=== PATIENT | male | born 1955 | race Hispanic/Latino ===

== ENCOUNTER 2018-08-14 13:06 | Emergency (ER) | payer MEDICAID, OTHER ==
[2018-08-14 13:10] VITALS: BMI 22.8
--- NOTE | 2018-08-14 14:30 | ED PDOC ---
HPI: General Adult Time Seen by Provider: 08/14/18 13:55 Chief Complaint (Nursing): Back Pain Chief Complaint (Provider): BACK PAIN History Per: Patient (63 Y/O MALE 2ND VISIT TO HOSPITAL FOR BACK PAIN. STATES HE FELL 2 WEEKS AGO AND WAS SEEN AT [facility] BUT NO EVALUATION OF HIS BACK AT THAT TIME DUE TO DISTRACTING ANKLE INJURY. DENIES ANY FEVERS/CHILLS. DENIES ANY DRUG ABUSE HISTORY. ) Past Medical History Reviewed: Historical Data, Nursing Documentation, Vital Signs Vital Signs: Last Vital Signs Temp 99.1 F 08/14/18 13:10 Pulse 84 08/14/18 13:10 Resp 17 08/14/18 13:10 BP 145/74 08/14/18 13:10 Pulse Ox 98 08/14/18 13:10 Primary Care Provider: Samm Saez - Family History Family History: States: Unknown Family Hx - Home Medications Home Medications: Ambulatory Orders Medication Instructions Recorded levoFLOXacin [Levaquin] 750 mg PO DAILY #7 tab 08/13/17 Docusate Sodium [Colace] 100 mg PO BID #20 capsule 08/14/18 Meloxicam [Mobic] 7.5 mg PO BID PRN #14 tab 08/14/18 - Allergies Allergies/Adverse Reactions: Allergies Allergy/AdvReac Type Severity Reaction Status Date / Time No Known Allergies Allergy Verified 08/14/18 13:15 Review of Systems ROS Statement: Except As Marked, All Systems Reviewed And Found Negative Physical Exam - Reviewed Nursing Documentation Reviewed: Yes Vital Signs Reviewed: Yes - Physical Exam Appears: Positive for: Well, Non-toxic, No Acute Distress Head Exam: Positive for: ATRAUMATIC, NORMAL INSPECTION, NORMOCEPHALIC Skin: Positive for: Normal Color, Warm, DRY Eye Exam: Positive for: EOMI, Normal appearance, PERRL ENT: Positive for: Normal ENT Inspection Neck: Positive for: Normal, Painless ROM Cardiovascular/Chest: Positive for: Regular Rate, Rhythm Respiratory: Positive for: CNT, Normal Breath Sounds Gastrointestinal/Abdominal: Positive for: Normal Exam, Soft Back: Positive for: Normal Inspection Extremity: Positive for: Normal ROM Neurological/Psych: Positive for: Awake, Alert, Normal Tone - ECG O2 Sat by Pulse Oximetry: 98 - Progress ED Course And Treament: OLD MEDICAL RECORDS REVIEWED. PATIENT WAS NOTED TO BE POSITIVE OPIATE/COCAINE ON DRUG SCREEN CT L SPINE/PELVIS: NO FX NO ABSCESS Disposition - Clinical Impression Clinical Impression: Back pain, Coccyx contusion - Patient ED Disposition Is Patient to be Admitted: No - Disposition Disposition: Routine/Home Disposition Time: 15:11 Condition: FAIR Prescriptions: Docusate Sodium [Colace] 100 mg PO BID #20 capsule Meloxicam [Mobic] 7.5 mg PO BID PRN #14 tab PRN Reason: Pain, Moderate (4-7) Instructions: Low Back Pain in Adults, Coccyx Injury (DC)
--- NOTE | 2018-08-14 15:02 | CT ---
Date of service: 08/14/2018 PROCEDURE: CT Lumbar Spine without contrast HISTORY: back pain/ fall/ h/o drug abuse COMPARISON: None available. TECHNIQUE: Axial computed tomography images were obtained of the lumbar spine without the use of intravenous contrast. Coronal and sagittal reformatted images were created and reviewed. Radiation dose: Total exam DLP = 926.57 mGy-cm. This CT exam was performed using one or more of the following dose reduction techniques: Automated exposure control, adjustment of the mA and/or kV according to patient size, and/or use of iterative reconstruction technique. FINDINGS: VERTEBRAE: No destructive bony lesion appreciable. Multilevel spondylosis seen diffusely but seen worst at L3-4 anteriorly. No fracture. Normal alignment. DISCS/SPINAL CANAL/NEURAL FORAMINA: L1-2: Minimal posterior disc bulge is appreciate without resulting in significant central canal stenosis. Borderline degenerative bilateral neural foraminal stenosis however. L2-3: Posterior disc bulge identified with facet joint degenerative arthropathy resulting in mild central canal stenosis concentrated at the lateral recesses. Mild bilateral neural foraminal stenosis is also identified on a degenerative basis. L3-4: A large disc osteophyte complex combines with facet joint degenerative changes resulting in a moderate central canal stenosis with moderate bilateral neural foraminal stenosis also present. L4-5: There is a circumferential disc bulge identified here with sagittal projection the best at demonstrating a likely extruded disc herniation causing a severe central canal stenosis. Moderate bilateral neural foraminal stenosis is identified on a degenerative basis. L5-S1: A posterior disc bulge appears moderate in size with small central disc protrusion questioned combined with facet joint degenerative changes to cause a [id number] central canal stenosis. Borderline bilateral neural foraminal stenosis. PARASPINAL SOFT TISSUES: Calcific non aneurysmal atherosclerotic abdominal aorta is appreciated as well as the visualized bilateral iliac arterial system. OTHER FINDINGS: None. IMPRESSION: 1. A L4-5 large central disc herniation overlies circumferential disc bulge posterior component causing a severe central canal stenosis. Moderate bilateral neural foraminal stenosis is appreciated on degenerative basis. Follow-up MRI is advised when feasible for confirmation. 2. Posterior disc bulge combined with small central disc protrusion causing mild to moderate central stenosis at L5-S1. 3. Moderate degenerative spinal stenosis L3-4, mild at L2-3.
--- NOTE | 2018-08-14 15:08 | CT ---
Date of service: 08/14/2018 PROCEDURE: CT Pelvis without contrast HISTORY: fall/pain sacrum COMPARISON: None available. TECHNIQUE: Contiguous axial images of the pelvis . No intravenous or oral contrast given. Coronal and sagittal reformats generated. Radiation dose: Total exam DLP = 0.0 mGy-cm. This CT exam was performed using one or more of the following dose reduction techniques: Automated exposure control, adjustment of the mA and/or kV according to patient size, and/or use of iterative reconstruction technique. FINDINGS: BLADDER: Urinary bladder is not distended limiting evaluation of the wall. Cystitis not excluded but no pericystic reactive changes are identified. No radiodense urolithiasis is identified in the lumen. REPRODUCTIVE ORGANS: Enlarged prostate gland noted. VISUALIZED BOWEL: Limited sigmoid diverticular changes are present without definite diverticulitis. PERITONEUM: Unremarkable, as visualized. No free fluid. No free air. LYMPH NODES: Unremarkable. No enlarged lymph nodes. BONES: No fracture or suspicious destructive bony lesion throughout the pelvis with pubic symphysis and pubic bones unremarkable. Degenerative subchondral cyst formation is appreciate the weight-bearing portions of the bilateral acetabuli accompanying cortical sclerosis on both sides of the hip joints. Limited osteophyte development is also appreciated at the hip joints compatible with moderate to severe bilateral degenerative joint disease. Lesser similar change appears at the bilateral sacroiliac joints. Sacral arcades appear unremarkable diffusely. No subluxation or dislocation bilateral hip joints. No distraction of the bilateral sacroiliac joints. VASCULATURE: No aortic atherosclerotic calcification or mural plaque present. OTHER FINDINGS: None. IMPRESSION: No acute or subacute fracture. No destructive bony lesion appreciable. Relatively advanced osteoarthritis bilateral hip joints with moderate degenerative joint disease bilateral sacroiliac joints. There is limited evaluation of soft tissue of the pelvis as per above. Limited sigmoid diverticulosis appreciated without acute findings associated grossly. Urinary bladder is poorly evaluated but is decompressed with cystitis difficult to exclude but not definitively favored.
[2018-08-14 16:19] VITALS: BP 143/69; PULSE 80; RESP 15; TEMP 98.8; O2SAT 100
== END 2018-08-14 16:18 | disposition home or self-care (01) ==
LOC: H.ER 13:06
DX: S30.0XXA Contusion of lower back and pelvis, initial encounter (principal)
CPT/HCPCS: 72131; 72192; 96372; 99283; J1885